=== PATIENT | female | born 1955 | race Caucasian/White ===

== ENCOUNTER 2018-07-25 00:10 | Inpatient (IN) | payer MEDICARE, MEDICAID ==
[~2018-07-25] VITALS: Ht 160 cm; Wt 62.6 kg
[2018-07-25] VITALS (17 sets, daily range): BP systolic 98–148; BP diastolic 54–101
[2018-07-25] MEDS ORDERED: SODIUM CHLORIDE 0.9% 1,000 ML IV ONE ×2 (00:21→00:30)
[2018-07-25] MEDS ORDERED: CALCIUM GLUCONATE 100MG/ML 10ML VIAL IV ONE (00:30)
[2018-07-25] MEDS ORDERED: ACETAMINOPHEN 650MG SUPP PR ONE (01:00)
[2018-07-25 01:26] LABS: CLARITY URINE TURBID (CLEAR); COLOR URINE DARK YELLOW (YELLOW); KETONES URINE TRACE (NEGATIVE); LEUKOCYTE ESTERASE URINE 3+ (NEGATIVE); NITRITE URINE NEGATIVE (NEGATIVE); OCCULT BLOOD URINE 2+ (NEGATIVE); PROTEIN URINE 1+ (NEGATIVE); SPECIFIC GRAVITY URINE 1.016 (1.005-1.030); UROBILINOGEN URINE 0.2 E.U./dL (0.2-1.0)
[2018-07-25 01:30] LABS: BASOPHILS % 0.2 % (0.0-2.0); HEMATOCRIT. 47.8 % (36.0-48.0); HEMOGLOBIN. 15.4 g/dL (12.0-16.0); MEAN CORPUSCULAR HEMOGLOBIN 28.3 pg (28.0-32.0); MEAN CORPUSCULAR VOLUME 87.8 fL (81.0-99.0); MEAN PLATELET VOLUME 10.3 fl (7.4-10.4); MONOCYTES % 8.7 % (2.0-8.0); NEUTROPHILS % 79.1 % (40.0-76.0); PLATELET 276 x1000/uL (130-400); RED BLOOD CELL COUNT 5.44 mill/uL (4.2-5.4); RED CELL DISTRIBUTION WIDTH 15.2 % (11.6-14.6)
[2018-07-25 01:43] LABS: CHLORIDE 115 mEq/L (98-107)
[2018-07-25 01:48] LABS: ETHANOL BLOOD < 10 mg/dL
[2018-07-25] MEDS ORDERED: PIPERACILLIN/TAZOBACTAM 3.375GM/50ML PREMIX IV ONE (02:00)
[2018-07-25] MEDS ORDERED: VANCOMYCIN 1 G PREMIX 200 ML IV NR (02:00)
[2018-07-25] MEDS ORDERED: PIPERACILLIN/TAZ 3.375G PREMIX 50 ML IV NR (02:00)
[2018-07-25] MEDS ORDERED: SODIUM CHLORIDE 0.9% 1000ML BAG (SEPSIS BOLUS) IV ONE (02:00)
[2018-07-25 02:08] LABS: INR 1.3; PARTIAL THROMBOPLASTIN TIME 21.5 sec (23.4-31.0); PROTHROMBIN TIME 13.4 sec (9.6-11.0)
[2018-07-25] MEDS ORDERED: INSULIN REGULAR (DRIP) 100 UNITS in SODIUM CHLORIDE 0.9% 100 ML IV ONE (03:00)
[2018-07-25] MEDS ORDERED: POTASSIUM CHLORIDE INJ 40 MEQ in DEXT 5% WATER 250 ML IV ONE (03:00)
[2018-07-25] MEDS ORDERED: INSULIN REGULAR (DRIP) 100 UNITS in SODIUM CHLORIDE 0.9% 100 ML IV NR (04:00)
[2018-07-25] MEDS ORDERED: MAGNESIUM/ALUMINUM HYDROXIDE/SIMETHICONE 30ML UDC PO PRN (09:15)
[2018-07-25] MEDS ORDERED: DOCUSATE SODIUM 100MG CAPSULE PO PRN (09:15)
[2018-07-25] MEDS ORDERED: ONDANSETRON HCL 4MG/2ML INJ IV PRN (09:15)
[2018-07-25] MEDS ORDERED: ENOXAPARIN 40MG/0.4ML SYR SUBCUT SCH (09:15)
[2018-07-25] MEDS ORDERED: PIPERACILLIN/TAZ 3.375G PREMIX 50 ML IV SCH (09:15)
[2018-07-25] MEDS ORDERED: GUAIFENESIN 200MG/10ML SUGAR FREE UDC PO PRN (09:15)
[2018-07-25] MEDS ORDERED: CLONIDINE 0.1MG TABLET PO PRN (09:15)
[2018-07-25] MEDS: ENOXAPARIN 30MG/0.3ML SYR SUBCUT SCH (10:51)
[2018-07-25] MEDS: INSULIN GLARGINE UD 100 UNITS/ML SYR SUBCUT SCH (10:53)
[2018-07-25] MEDS: ACETAMINOPHEN 325MG TABLET PO PRN (11:02)
[2018-07-25] MEDS: SODIUM CHLORIDE 0.9% 1,000 ML IV SCH ×2 (11:04→19:00)
[2018-07-25] MEDS: PIPERACILLIN/TAZ 2.25G PREMIX 50 ML IV SCH ×2 (14:27→21:59)
[2018-07-25] MEDS ORDERED: DEXTROSE 50% WATER 50ML SYRINGE IV PRN ×2 (17:45→18:00)
[2018-07-25] MEDS: BLOOD SUGAR DIAGNOSTIC STRIP TEST SCH ×2 (17:50→20:37)
[2018-07-25] MEDS: INSULIN LISPRO 100 UNITS/ML SUBCUT SCH ×2 (18:26→20:47)
[2018-07-25] MEDS: DEXTROSE 5% WATER 1,000 ML IV SCH (20:37)
[2018-07-25] MEDS ORDERED: BLOOD SUGAR DIAGNOSTIC STRIP TEST SCH (21:00)
[2018-07-25 21:49] LABS: BASOPHILS % 0.1 % (0.0-2.0); HEMATOCRIT. 44.2 % (36.0-48.0); HEMOGLOBIN. 14.5 g/dL (12.0-16.0); LYMPHOCYTES % 10.6 % (20.0-50.0); MEAN CORPUSCULAR HEMOGLOBIN 27.8 pg (28.0-32.0); MEAN CORPUSCULAR VOLUME 84.8 fL (81.0-99.0); MEAN PLATELET VOLUME 10.5 fl (7.4-10.4); NEUTROPHILS % 84.3 % (40.0-76.0); PLATELET 207 x1000/uL (130-400); RED BLOOD CELL COUNT 5.21 mill/uL (4.2-5.4); RED CELL DISTRIBUTION WIDTH 15.3 % (11.6-14.6)
[2018-07-26] VITALS (28 sets, daily range): BP systolic 76–176; BP diastolic 42–119
[2018-07-26 05:49] LABS: CHLORIDE 126 mEq/L (98-107)
[2018-07-26 05:54] LABS: PHOSPHORUS 2.5 mg/dL (2.5-4.9)
[2018-07-26 06:13] LABS: BASOPHILS % 0.3 % (0.0-2.0); HEMATOCRIT. 41.6 % (36.0-48.0); HEMOGLOBIN. 13.7 g/dL (12.0-16.0); LYMPHOCYTES % 12.1 % (20.0-50.0); MEAN CORPUSCULAR HEMOGLOBIN 28.1 pg (28.0-32.0); MEAN CORPUSCULAR VOLUME 84.9 fL (81.0-99.0); MONOCYTES % 6.1 % (2.0-8.0); NEUTROPHILS % 81.5 % (40.0-76.0); RED CELL DISTRIBUTION WIDTH 15.1 % (11.6-14.6)
[2018-07-26] MEDS: DEXTROSE 5% WATER 1,000 ML IV SCH (06:13)
[2018-07-26] MEDS: PIPERACILLIN/TAZ 2.25G PREMIX 50 ML IV SCH ×3 (06:16→23:41)
[2018-07-26] MEDS: BLOOD SUGAR DIAGNOSTIC STRIP TEST SCH ×4 (07:50→21:44)
[2018-07-26] MEDS: ACETAMINOPHEN 325MG TABLET PO PRN (10:13)
[2018-07-26] MEDS: ENOXAPARIN 30MG/0.3ML SYR SUBCUT SCH (10:13)
[2018-07-26] MEDS: INSULIN GLARGINE UD 100 UNITS/ML SYR SUBCUT SCH (10:14)
[2018-07-26] MEDS: INSULIN LISPRO 100 UNITS/ML SUBCUT SCH ×4 (10:15→21:30)
[2018-07-26 11:39] LABS: PLATELET 172 x1000/uL (130-400)
[2018-07-26] MEDS ORDERED: FLUCONAZOLE 200MG/100ML PREMIX IV ONE (12:15)
[2018-07-26] MEDS ORDERED: FLUCONAZOLE 200 MG/100ML BAG 100 ML IV SCH (13:00)
[2018-07-26] MEDS: SODIUM CHLORIDE 0.45% 1,000 ML IV SCH ×2 (14:15→21:30)
[2018-07-26] MEDS ORDERED: AMLO5TAB88 PO (14:44)
[2018-07-26] MEDS ORDERED: FAMO20TA8 PO (14:45)
[2018-07-26] MEDS ORDERED: FLUC100T42 PO (14:46)
[2018-07-26] MEDS ORDERED: IPRA3AMP31 IH (14:49)
[2018-07-26] MEDS ORDERED: LISI10TA5 PO (14:49)
[2018-07-26] MEDS ORDERED: FOLI-43 PO (14:49)
[2018-07-27] VITALS (7 sets, daily range): BP systolic 126–147; BP diastolic 67–83
[2018-07-27] MEDS: SODIUM CHLORIDE 0.9% 1,000 ML IV SCH (00:58)
[2018-07-27] MEDS: PIPERACILLIN/TAZ 2.25G PREMIX 50 ML IV SCH ×3 (06:11→20:23)
[2018-07-27] MEDS: BLOOD SUGAR DIAGNOSTIC STRIP TEST SCH ×4 (06:12→20:19)
[2018-07-27] MEDS: SODIUM CHLORIDE 0.45% 1,000 ML IV SCH ×3 (06:12→20:22)
[2018-07-27] MEDS: INSULIN LISPRO 100 UNITS/ML SUBCUT SCH ×4 (06:20→20:30)
[2018-07-27 06:34] LABS: CHLORIDE 126 mEq/L (98-107)
[2018-07-27 06:36] LABS: BASOPHILS % 0.3 % (0.0-2.0); HEMATOCRIT. 37.4 % (36.0-48.0); HEMOGLOBIN. 12.5 g/dL (12.0-16.0); LYMPHOCYTES % 14.2 % (20.0-50.0); MEAN CORPUSCULAR VOLUME 83.6 fL (81.0-99.0); MEAN PLATELET VOLUME 10.2 fl (7.4-10.4); MONOCYTES % 4.3 % (2.0-8.0); NEUTROPHILS % 81.2 % (40.0-76.0); PLATELET 165 x1000/uL (130-400); RED BLOOD CELL COUNT 4.47 mill/uL (4.2-5.4); RED CELL DISTRIBUTION WIDTH 15.4 % (11.6-14.6)
[2018-07-27] MEDS: ENOXAPARIN 30MG/0.3ML SYR SUBCUT SCH (08:42)
[2018-07-27] MEDS: FAMOTIDINE 20MG/2ML VIAL IV SCH (10:10)
[2018-07-27] MEDS: INSULIN GLARGINE UD 100 UNITS/ML SYR SUBCUT SCH (10:12)
[2018-07-27] MEDS: ACETAMINOPHEN 325MG TABLET PO PRN (12:47)
[2018-07-27] MEDS ORDERED: LIDOCAINE HCL 1% 20ML VIAL (Pyxis) INJ ONE (14:12)
[2018-07-27] MEDS ORDERED: SODIUM BICARBONATE 4% (2.4MEQ) 5ML VIAL IV ONE (14:12)
[2018-07-28] VITALS: BP 136/80
[2018-07-28] MEDS: PIPERACILLIN/TAZ 2.25G PREMIX 50 ML IV SCH ×2 (02:58→08:46)
[2018-07-28] MEDS: SODIUM CHLORIDE 0.45% 1,000 ML IV SCH (02:59)
[2018-07-28 04:00] VITALS: BP 127/74
[2018-07-28] MEDS: BLOOD SUGAR DIAGNOSTIC STRIP TEST SCH ×2 (07:58→12:40)
[2018-07-28 08:00] VITALS: BP 163/79
[2018-07-28] MEDS: INSULIN LISPRO 100 UNITS/ML SUBCUT SCH ×2 (08:48→13:10)
[2018-07-28] MEDS: FAMOTIDINE 20MG/2ML VIAL IV SCH (08:52)
[2018-07-28] MEDS ORDERED: ENOXAPARIN 40MG/0.4ML SYR SUBCUT SCH (09:00)
[2018-07-28] MEDS: INSULIN GLARGINE UD 100 UNITS/ML SYR SUBCUT SCH (10:00)
[2018-07-28 12:00] VITALS: BP 113/59
[2018-07-28 13:10] VITALS: BP 134/75
[2018-07-28 16:00] VITALS: BP 134/75
== END 2018-07-28 18:15 | DRG 871 ==
LOC: ER 00:10 → CVICU 02:52 → EDBEDREQSVC 02:59 → EDBEDREQTM 02:59 → EDBEDREQ 03:00 → EDBEDREQTM 03:00 → ENRESERV 07:16 → 7WST 07-26 17:17
PROVIDERS: ADMIT Hospitalist; ATTEND Hospitalist
DX: A41.9 Sepsis, unspecified organism (principal); E11.10 Type 2 diabetes mellitus with ketoacidosis without coma; G93.41 Metabolic encephalopathy; N17.0 Acute kidney failure with tubular necrosis; E87.0 Hyperosmolality and hypernatremia; N39.0 Urinary tract infection, site not specified; E87.1 Hypo-osmolality and hyponatremia; E83.52 Hypercalcemia; K21.9 Gastro-esophageal reflux disease without esophagitis; I10 Essential (primary) hypertension; I95.9 Hypotension, unspecified; E11.65 Type 2 diabetes mellitus with hyperglycemia; Z86.73 Personal history of transient ischemic attack (TIA), and cerebral infarction without residual deficits; Z87.440 Personal history of urinary (tract) infections; Z91.19 Patient's noncompliance with other medical treatment and regimen
CPT/HCPCS: 36415; 71045; 76770; 80048; 80320; 82010; 82962; 83036; 83605; 83735; 84100; 84145; 84484; 93005; 93970; 96374; 97162; 99291; A6261; C1893; J0610; J1450; J1650; J1815; J2543; J3370; J3480; J3490; J7030; J7050; J7060; J7070; G0480